=== PATIENT | male | born 1970 | race African-American/Black ===

== ENCOUNTER 2018-10-18 09:56 | Emergency (ER) | payer OTHER ==
[2018-10-18 10:11] VITALS: BP 155/108; PULSE 73; TEMP 97.7; BMI 30.8
--- NOTE | 2018-10-18 10:22 | PDOC ---
History of Present Illness - General Chief Complaint: Ear Problem Stated Complaint: RT EAR PAIN Time Seen by Provider: 10/18/18 10:01 - History of Present Illness Initial Comments: 10/18/18 10:18 48 years old past medical history significant for asthma presents to the emergency department with now 4 week history of right ear pain. Pain is persistent constant worse when he lays down worse when he tilts his head to the left. Denies fevers chills blurry vision double vision discharge from the ear He presented to an urgent care approximately 2 weeks ago was prescribed ofloxacin drops and amoxicillin by mouth he took these medications for 1 week with no improvement. He presents today 1 week after finishing his antibiotics with persistent discomfort No travel no sick contacts. Symptoms are moderate persistent constant exacerbated by movement no significant alleviating factors. Past History - Past Medical History Allergies/Adverse Reactions: Allergies Allergy/AdvReac Type Severity Reaction Status Date / Time No Known Allergies Allergy Verified 10/18/18 09:57 Home Medications: Ambulatory Orders Amlodipine Besylate 5 mg PO DAILY 10/18/18 Amoxicillin - [Amoxicillin 500mg Capsule -] 500 mg PO BID 10/18/18 Ofloxacin Otic [Floxin Otic (Ear) Solution -] 10 drop OT BID 10/18/18 COPD: No - Suicide/Smoking/Psychosocial Hx Smoking History: Current some day smoker Have you smoked in the past 12 months: Yes Number of Cigarettes Smoked Daily: 0 Cigars Per Day: 1 Information on smoking cessation initiated: Yes Hx Alcohol Use: No Drug/Substance Use Hx: No Review of Systems - Review of Systems Comments:: 10/18/18 10:19 ROS: A complete review of 10 out of 10 review of systems is taken and is negative apart from what is previously mentioned below and in the HPI. *Physical Exam - Vital Signs Last Vital Signs Temp Pulse Resp BP Pulse Ox 97.7 F 73 20 155/108 H 96 10/18/18 09:56 10/18/18 09:56 10/18/18 09:56 10/18/18 09:56 10/18/18 09:56 - Physical Exam Comments: 10/18/18 10:20 Vitals: Triage Vital signs reviewed General Appearance: no acute distress, well nourished well developed, Head: Atraumatic, Eyes: Pupils equal reactive round, extraocular movement intact Ears: TM's normal bilaterally; very small amount of fluid behind right TM Nose: Nares patent bilaterally;no nasal congestion Throat: Posterior oropharynx without erythema, mucous membranes moist, Neck: Supple;No Nucal rigidity Chest Wall: Nontender Skin: Warm and dry, no rashes or lesions, no rash, no petechiae Psych: normal mood, normal affect Medical Decision Making - Medical Decision Making 10/18/18 10:22 Small amount of fluid behind right ear. Given to recent antibiotics with no improvement, and 4 weeks of symptoms, at this time we'll defer management to ENT specialist. We'll recommend Flonase and Afrin and very prompt follow-up Findings, the need for follow-up and strict return instructions discussed with patient. *DC/Admit/Observation/Transfer Diagnosis at time of Disposition: Ear pain, right - Discharge Dispostion Disposition: HOME Condition at time of disposition: Good Decision to Admit order: No - Referrals Referrals: Jefferson Prather MD [Staff Physician] - - Patient Instructions Additional Instructions: Use Flonase twice a day for the next week. Afrin nasal spray twice a day for the next 3 days. Follow-up either today or tomorrow with Dr. Elkins ENT. Return to emergency department for any severe worsening symptoms or for any concerns. Please take a blood pressure medication daily as prescribed. Follow- up with her primary care provider within one week to have it rechecked. - Post Discharge Activity
== END 2018-10-18 10:36 | disposition home or self-care (01) ==
LOC: FER 09:56
DX: H92.01 Otalgia, right ear (principal); F17.210 Nicotine dependence, cigarettes, uncomplicated; J45.909 Unspecified asthma, uncomplicated
CPT/HCPCS: 99282-25

== ENCOUNTER 2018-11-13 19:45 | Emergency (ER) | payer OTHER ==
[2018-11-13 19:55] VITALS: BP 152/110; PULSE 95; TEMP 98.1; BMI 30.8
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
[2018-11-13] MEDS ORDERED: CYCLOBENZAPRINE HCL 10 MG TABLET (FP) PO ONE (20:42)
[2018-11-13] MEDS ORDERED: KETOROLAC TROMETHAMINE 60 MG/2 ML VIAL ONE (20:42)
[2018-11-13] MEDS ORDERED: KETOROLAC TROMETHAMINE 60 MG/2 ML VIAL IM ONE ×2 (20:42)
[2018-11-13] MEDS ORDERED: CYCLOBENZAPRINE HCL 10 MG TABLET (FP) ONE (20:42)
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
== END 2018-11-13 21:43 | disposition home or self-care (01) ==
LOC: FER 19:45
CPT/HCPCS: 72070-TC-FY; 73030-TC-LT-FY; 73610-TC-RT-FY; 99281-25

== ENCOUNTER 2021-02-03 11:12 | Emergency (ER) | payer OTHER ==
[2021-02-03 11:35] VITALS: BP 195/133; PULSE 76; TEMP 98.8; BMI 29.4
[2021-02-03] MEDS ORDERED: DIPHTH,PERTUSS(ACELL),TET 0.5 ML DISP.SYRIN IM ONE ×2 (12:01→12:04)
== END 2021-02-03 12:13 | disposition home or self-care (01) ==
LOC: FER 11:12
PROC: 0HQFXZZ Repair Right Hand Skin, External Approach (ICD-10-PCS; principal; 2021-02-03)
PROC: 3E0234Z Introduction of Serum, Toxoid and Vaccine into Muscle, Percutaneous Approach (ICD-10-PCS; 2021-02-03)
DX: S61.216A Laceration without foreign body of right little finger without damage to nail, initial encounter (principal); W26.0XXA Contact with knife, initial encounter; Y92.9 Unspecified place or not applicable
CPT/HCPCS: 90715; 99283-25

== ENCOUNTER 2021-02-05 13:04 | Emergency (ER) | payer OTHER ==
[2021-02-05 13:15] VITALS: BP 189/131; PULSE 88; TEMP 97; BMI 29.4
== END 2021-02-05 13:44 | disposition home or self-care (01) ==
LOC: FER 13:04
DX: S61.316A Laceration without foreign body of right little finger with damage to nail, initial encounter (principal)
CPT/HCPCS: 99282-25

== ENCOUNTER 2021-02-12 11:59 | Emergency (ER) | payer OTHER ==
[2021-02-12 12:04] VITALS: BP 194/130; PULSE 80; TEMP 98.1; BMI 28.7
== END 2021-02-12 12:33 | disposition home or self-care (01) ==
LOC: FER 11:59
DX: Z48.02 Encounter for removal of sutures (principal)
CPT/HCPCS: 99281-25